=== PATIENT | female | born 1955 | race Caucasian/White ===

== ENCOUNTER 2019-11-19 05:15 | Day surgery (SDC) | payer BC ==
[~2019-11-19 05:15] MED LIST: ACETAMINOPHEN 325 MG TABLET ONE; ACETAMINOPHEN 325 MG TABLET PO PRN; CEFAZOLIN 2 GM/D5W RTU 2 GM/50 ML RTUPB IV ONE; CEFAZOLIN 2 GM/D5W RTU 2 GM/50 ML RTUPB IV PRN; CELECOXIB 200 MG CAPSULE ONE; CELECOXIB 200 MG CAPSULE PO PRN; GABAPENTIN 100 MG CAPSULE ONE; GABAPENTIN 100 MG CAPSULE PO PRN; ONDANSETRON HCL INJ/PF 4 MG/2 ML SDV IV PRN; ONDANSETRON HCL INJ/PF 4 MG/2 ML SDV ONE; OXYCODONE HCL SR 10 MG TABLET PO ONE; OXYCODONE HCL SR 10 MG TABLET PO PRN; SCOPOLAMINE HYDROBROMIDE 1.5 MG PATCH.TD72 ONE; SCOPOLAMINE HYDROBROMIDE 1.5 MG PATCH.TD72 TD PRN; TRAMADOL HCL 50 MG TABLET ONE; TRAMADOL HCL 50 MG TABLET PO PRN; TRANEXAMIC ACID INJ/PF 1,000 MG/10 ML SDV IV PRN; VANCOMYCIN HCL 1,000 MG in DEXTROSE 5%-WATER 250 ML IV PRN
[2019-11-19] MEDS ORDERED: MIDAZOLAM 2 MG/2 ML INJ ONE (07:02)
[2019-11-19] MEDS ORDERED: FENTANYL CITRATE INJ/PF 100 MCG/2 ML AMPUL ONE (07:02)
[2019-11-19] MEDS ORDERED: TRANEXAMIC ACID INJ/PF 1,000 MG/10 ML SDV ONE (07:03)
[2019-11-19] MEDS ORDERED: LIDOCAINE 2% INJ (20 MG/ML) 20 ML MDV ONE (07:03)
[2019-11-19] MEDS ORDERED: PROPOFOL 1,000 MG/100 ML INFUS..BTL IV ONE (07:03)
[2019-11-19] MEDS ORDERED: LIDOCAINE 1% INJ-PF (10 MG/ML) 30 ML SDV ONE (07:07)
[2019-11-19] MEDS ORDERED: KETOROLAC TROMETHAMINE INJ/PF 30 MG/1 ML SDV ONE (07:07)
[2019-11-19] MEDS ORDERED: VANCOMYCIN HCL INJ 1000 MG VIAL ONE (07:07)
[2019-11-19] MEDS ORDERED: BUPIVACAINE HCL 0.25 % INJ/PF (2.5 MG/1 ML) 30 ML VIAL ONE (07:07)
[2019-11-19] MEDS ORDERED: ONDANSETRON HCL INJ/PF 4 MG/2 ML SDV ONE (07:30)
[2019-11-19] MEDS ORDERED: EPHEDRINE SULFATE INJ 50 MG/1 ML AMPULE ONE (08:04)
[2019-11-19] MEDS ORDERED: PROMETHAZINE HCL INJ 25 MG/1 ML VIAL IV PRN (08:09)
[2019-11-19] MEDS ORDERED: FENTANYL CITRATE INJ/PF 100 MCG/2 ML AMPUL IV PRN ×3 (08:09)
[2019-11-19] MEDS ORDERED: ONDANSETRON HCL INJ/PF 4 MG/2 ML SDV IV PRN (08:09)
[2019-11-19] MEDS ORDERED: MORPHINE SULFATE 10 MG/ML INJ IV PRN (08:09)
[2019-11-19] MEDS ORDERED: DIPHENHYDRAMINE HCL 50 MG/ML VIAL IV PRN (08:09)
[2019-11-19] MEDS ORDERED: OXYCODONE-ACETAMINOPHEN 5-325 MG TABLET PO PRN ×2 (08:09)
[2019-11-19] MEDS ORDERED: MEPERIDINE HCL/PF INJ 25 MG/1 ML DISP.SYRIN IV PRN (08:09)
--- NOTE | 2019-11-19 09:12 | Operative Report ---
Operative Report DATE OF SURGERY: 11/19/19 PREOPERATIVE DIAGNOSIS: Left hip primary osteoarthritis, severe POSTOPERATIVE DIAGNOSIS: Left hip primary osteoarthritis, severe OPERATION: Left total hip arthroplasty SURGEON: FRANCISCO STRICKLAND JR ANESTHESIA: Spinal COMPLICATIONS: None ESTIMATED BLOOD LOSS: 200 cc PROCEDURE: Implants: Judit Accolade 2 size 7 femoral stem with lateral offset, a Trident 2 size 52 cup, and a standard liner, a +2.5 neck length 36 mm ceramic head BRIEF HISTORY: 64 year old female with severe degenerative arthritis of left hip, which has failed conservative treatment and has elected for a total hip arthroplasty. Risks include but are not limited to bleeding, infection, anesthesia, , injury to nerve or vessel, pain, scar, leg length inequality, dislocation, future surgery, and blood clots. Patient read through the pre-op counseling form and signed and consented for surgery on their left hip. OPERATIVE PROCEDURE: Patient was brought to the operating room on and underwent spinal anesthesia. 2 grams of Ancef and 1 g of vancomycin was given. After proper anesthesia was obtained, patient was positioned, padded, prepped, and draped in the usual sterile fashion on the operating room table. Appropriate time out was performed. An anterior approach to the hip was undertaken with meticulous hemostasis through the deep interval. A capsulectomy was performed followed by exposure of the femoral neck. The femoral neck was cut in line with the femoral broach and the femoral head was removed. The acetabulum was then exposed with three retractors in an atraumatic fashion. Soft tissue and osteophytes were removed. Medialization reaming was performed followed by anatomic reaming up to accept a 52 mm acetabulum. Wound was irrigated with dilute betadyne solution and the 52 mm acetabulum was impacted into correct position and stability checked by manipulating the impaction handle which rocked the pelvis. A standard liner was impacted into the shell with good stability. Potential impinging osteophytes were removed. Attention was then directed toward the femur, which was exposed with two retrac tors in an atraumatic fashion. A bone hook was placed to carefully perform releases along the superior capsule until the femur was safely delivered through the wound. A dry box tender was utilized followed by lateralization rasping and then broaching up to accept a 6 femur. With a lateral offset neck and a 0 neck length head, stability was good in flexion and extension with near equal leg lengths, and hyperflexion I was able to internally rotate and produced some subluxation. Fluoroscopy was used which found some potential room for increasing the femoral stem size to a size 7. We then removed the stem and broached up to a size 7 femur. I re-trialed this with a lateral offset 0 neck length head, which had improved stability to the point it was difficult to reduce with some slight but improved posterior instability and hyperflexion and internal rotation. The real lateral offset femur was impacted into a copiously irrigated femoral canal. A 36 mm +2.5 head was impacted on a clean dry femoral taper. The hip was irrigated and reduced, further irrigation with antibiotic solution, betadine solution, then antibiotic solution. Bleeders were coagulated with bovie cautery. The fascia was then closed with number 2 Quill; the subcutaneous tissue closed with interrupted inverted 2-0 monocryl then running 3-0 monocryl subcuticular. A silver dressing was then applied. All needle sponge and instrument counts were correct. Patient was awakened from sedation anesthesia and taken to recovery room in good condition. Thank you, Francisco Strickland, DO
--- NOTE | 2019-11-19 09:18 | Discharge Summary ---
Discharge Summary (SDC) - Discharge Final Diagnosis: Left total hip arthroplasty Date of Surgery: 11/19/19 Discharge Date: 11/19/19 Condition: Stable Treatment or Instructions: My total joint instructions Referrals: JANINA REES MD [Primary Care Provider] - Respiratory Treatments at Home: Deep Breathing/Coughing Discharge Activity: Activity As Tolerated, Balance Activity w/Rest, No Driving, Keep Legs Elevated, No Lifting/Push/Pulling, Slowly Increase Activity, No tub bath, Walk Frequently Home Care Assistance: None Needed Activities Provided by Home Health Agency: Physical Therapy Adaptive Devices on Discharge: Rolling Walker, Bedside Commode Report the Following to Your Physician Immediately: Shortness of Breath, Fever over 101 Degrees, Unusual Bleeding, Drainage-Yellow
[2019-11-19] MEDS ORDERED: PROMETHAZINE HCL INJ 25 MG/1 ML VIAL ONE (09:26)
--- NOTE | 2019-11-19 10:07 | RADIOLOGY REPORT (SQ) ---
EXAM DESCRIPTION: HIP LEFT AP/LATERAL IMAGES COMPLETED DATE/TIME: 11/19/2019 9:51 am REASON FOR STUDY: POST OP PACU M16.12 UNILATERAL PRIMARY OSTEOARTHRITIS, LEFT HIP COMPARISON: 11/19/2019 intraoperative images NUMBER OF VIEWS: Four views. TECHNIQUE: AP pelvis and additional frog-leg view of the left hip. LIMITATIONS: None. FINDINGS: MINERALIZATION: Normal. LEFT HIP: The patient is status post left total hip arthroplasty without evidence of hardware fractur e or perihardware lucency. The femoral head component appears to be well seated within the acetabula r component. No osseous injuries. RIGHT HIP: No fracture or dislocation. No worrisome bone lesions. PUBIS AND ISCHIUM: No fracture. PELVIS: No fracture. SACRUM: No fracture or dislocation. No worrisome bone lesions. LOWER LUMBAR SPINE: No fracture or worrisome bone lesions. SOFT TISSUES: Subcutaneous gas is not an unexpected finding in the immediate postoperative setting. OTHER: No other significant finding. IMPRESSION: Status post left total hip arthroplasty without evidence of hardware complication. TECHNICAL DOCUMENTATION: JOB ID: [id number] 2010 [email or web address]- All Rights Reserved Reading location - IP/workstation name: [email or web address]
--- NOTE | 2019-11-19 10:10 | RADIOLOGY REPORT (SQ) ---
EXAM DESCRIPTION: NO CHG FLUORO; HIP IN OPERATING RM IMAGES COMPLETED DATE/TIME: 11/19/2019 9:25 am REASON FOR STUDY: LEFT TOTAL HIP ASSISTED WITH FLUORO IN OR M16.12 UNILATERAL PRIMARY OSTEOARTHRITI S, LEFT HIP COMPARISON: 06/02/2019 FLUOROSCOPY TIME: Less than 1 minute. 3 Images saved to PACS TECHNIQUE: Intra-operative images acquired during surgical procedure to evaluate progress. NUMBER OF IMAGES: 3 LIMITATIONS: None. FINDINGS: 3 intraoperative fluoroscopic spot images were obtained. Images are submitted for adminis trative purposes only. Please refer to the operative report for full details regarding this procedur e. IMPRESSION: IMAGE(S) OBTAINED DURING PROCEDURE. COMMENT: Quality ID [id number]: Final reports for procedures using fluoroscopy that document radiation exp osure indices, or exposure time and number of fluorographic images (if radiation exposure indices are not available) Please consult full operative report of the attending physician for description of the procedure. TECHNICAL DOCUMENTATION: JOB ID: [id number] 2010 [employer]- All Rights Reserved Reading location - IP/workstation name: [email or web address]
--- NOTE | 2019-11-19 10:10 | RADIOLOGY REPORT (SQ) ---
EXAM DESCRIPTION: NO CHG FLUORO; HIP IN OPERATING RM IMAGES COMPLETED DATE/TIME: 11/19/2019 9:25 am REASON FOR STUDY: LEFT TOTAL HIP ASSISTED WITH FLUORO IN OR M16.12 UNILATERAL PRIMARY OSTEOARTHRITI S, LEFT HIP COMPARISON: 06/02/2019 FLUOROSCOPY TIME: Less than 1 minute. 3 Images saved to PACS TECHNIQUE: Intra-operative images acquired during surgical procedure to evaluate progress. NUMBER OF IMAGES: 3 LIMITATIONS: None. FINDINGS: 3 intraoperative fluoroscopic spot images were obtained. Images are submitted for adminis trative purposes only. Please refer to the operative report for full details regarding this procedur e. IMPRESSION: IMAGE(S) OBTAINED DURING PROCEDURE. COMMENT: Quality ID [id number]: Final reports for procedures using fluoroscopy that document radiation exp osure indices, or exposure time and number of fluorographic images (if radiation exposure indices are not available) Please consult full operative report of the attending physician for description of the procedure. TECHNICAL DOCUMENTATION: JOB ID: [id number] 2010 [employer]- All Rights Reserved Reading location - IP/workstation name: [email or web address]
[2019-11-19 16:55] VITALS: BP 110/49
== END 2019-11-19 16:59 | disposition home or self-care (01) ==
LOC: OROUT 05:15 → EDSEX 07:30 → 4S 10:24 → OROUT 16:59
PROVIDERS: ATTEND Orthopaedic Surgery
DX: M16.12 Unilateral primary osteoarthritis, left hip (principal); Z03.818 Encounter for observation for suspected exposure to other biological agents ruled out; Z88.1 Allergy status to other antibiotic agents; Z87.891 Personal history of nicotine dependence; Z79.899 Other long term (current) drug therapy; E07.9 Disorder of thyroid, unspecified
CPT/HCPCS: 86900; 86901; 36415; 86850; 87635; 73502; 73501; 97530; 97110; 97116; 97163; 97535; 97165; 01214; 27130; C1776 ×4; J2250; J3490 ×4; J3010; J2704; J1885; J2550; J2405; J7060; J3370; J0690; C9803